=== PATIENT | male | born 1965 | race Caucasian/White ===

== ENCOUNTER 2020-12-07 22:20 | Emergency (ER) | payer SELFPAY ==
[~2020-12-07] VITALS: Ht 182.8 cm; Wt 86.2 kg
[2020-12-08] MEDS ORDERED: PYRIDIUM200 M1 PO (00:52)
== END 2020-12-08 01:06 | disposition home or self-care (01) ==
LOC: ED 22:20
DX: G43.909 Migraine, unspecified, not intractable, without status migrainosus (principal); Z20.822 Contact with and (suspected) exposure to COVID-19; Z88.5 Allergy status to narcotic agent